=== PATIENT | female | born 1945 | race Caucasian/White ===

== ENCOUNTER → 2020-08-29 | Outpatient (CLI) | payer MEDICARE | END | disposition home or self-care (01) | LOC: RAH 12:58 | PROVIDERS: ATTEND Internal Medicine | DX: M11.261 Other chondrocalcinosis, right knee (principal); M11.262 Other chondrocalcinosis, left knee | CPT/HCPCS: 73700 ==

== ENCOUNTER → 2020-10-18 | Outpatient (CLI) | payer MEDICARE | END | disposition home or self-care (01) | LOC: RAH 15:24 | PROVIDERS: ATTEND Internal Medicine | DX: R05 Cough (principal); M47.814 Spondylosis without myelopathy or radiculopathy, thoracic region | CPT/HCPCS: 71046 ==

== ENCOUNTER → 2022-03-09 | Outpatient (CLI) | payer MEDICARE | END | disposition home or self-care (01) | LOC: RAH 11:59 | PROVIDERS: ATTEND Internal Medicine | DX: R03.0 Elevated blood-pressure reading, without diagnosis of hypertension (principal); J98.01 Acute bronchospasm; M47.814 Spondylosis without myelopathy or radiculopathy, thoracic region; I70.0 Atherosclerosis of aorta | CPT/HCPCS: 71046 ==

== ENCOUNTER → 2023-04-08 | Outpatient (CLI) | payer MEDICARE | END | disposition home or self-care (01) | LOC: RAH 13:49 | PROVIDERS: ATTEND Internal Medicine | DX: K57.90 Diverticulosis of intestine, part unspecified, without perforation or abscess without bleeding (principal); R10.9 Unspecified abdominal pain; R63.4 Abnormal weight loss; K76.0 Fatty (change of) liver, not elsewhere classified; M47.815 Spondylosis without myelopathy or radiculopathy, thoracolumbar region; I70.0 Atherosclerosis of aorta | CPT/HCPCS: 74176 ==